=== PATIENT | male | born 1980 | race Caucasian/White ===

== ENCOUNTER 2020-06-20 07:14 | Emergency (ER) | payer MEDICAID ==
[~2020-06-20] VITALS: Ht 175.3 cm; Wt 73.6 kg
[2020-06-20 07:21] VITALS: BP 126/101
--- NOTE | 2020-06-20 07:43 | NUR ---
PT WITH COMPLAINTS OF HOFFMANN, SOB X3 DAYS, TAKES METH DAILY, LAST TAKEN THIS MORNING. PATIENT DONG SOB AND HOFFMANN AT THIS TIME. PATIENT ATTACHED TO ALL MONITORS, VSS, NADN. Addendum: 06/20/20 at 0748 by JAYDA PT WITH COMPLAINTS OF HOFFMAN[place], SOB X3 DAYS, TAKES METH DAILY, LAST TAKEN THIS MORNING. PATIENT DONG SOB AND HOFFMANN AT THIS TIME. PATIENT ATTACHED TO ALL MONITORS, VSS, NADN. PATIENT REQUESTING COVID TEST TO EXCUSE SELF FROM WORK.
--- NOTE | 2020-06-20 08:21 | NUR ---
Patient given discharge instructions and they have confirmed that they understand the instructions. Patient ambulatory with steady gait.
== END 2020-06-20 08:28 | disposition home or self-care (01) ==
LOC: ED 08:19
DX: Z04.89 Encounter for examination and observation for other specified reasons (principal); Z20.822 Contact with and (suspected) exposure to COVID-19; R94.31 Abnormal electrocardiogram [ECG] [EKG]
CPT/HCPCS: 93005; 99284; U0003